=== PATIENT | female | born 1950 | race Caucasian/White ===

== ENCOUNTER → 2018-02-05 | Outpatient (CLI) | payer OTHER ==
[~2018-02-05] MED LIST: AMLODIPINE-BEN1 EACH PO; CENTRUM TABLET1 EACH PO; FISH OIL 1,0001 EAC5 PO; HYDROCHLOROTHIA25 M1 PO; VITAMIN D1000 UNI1 PO
== END ==
LOC: RAD 01:34
DX: Z12.31 Encounter for screening mammogram for malignant neoplasm of breast (principal)

== ENCOUNTER → 2019-02-12 | Outpatient (CLI) | payer OTHER | LOC: RAD 04:25 | DX: Z12.31 Encounter for screening mammogram for malignant neoplasm of breast (principal) ==

== ENCOUNTER → 2020-04-25 | Outpatient (CLI) | payer OTHER | LOC: BC 02-16 09:58 | PROVIDERS: ATTEND Obstetrics & Gynecology | DX: Z12.31 Encounter for screening mammogram for malignant neoplasm of breast (principal) ==

== ENCOUNTER → 2021-05-01 | Outpatient (CLI) | payer OTHER | LOC: BC 11:05 | PROVIDERS: ATTEND Obstetrics & Gynecology | DX: Z12.31 Encounter for screening mammogram for malignant neoplasm of breast (principal) ==